=== PATIENT | female | born 1965 | race Caucasian/White ===

== ENCOUNTER 2017-07-20 03:31 | Emergency (ER) | payer SELFPAY ==
[2017-07-20 04:07] VITALS: RESP 16
--- NOTE | 2017-07-20 04:09 | ED PDOC ---
Arrival/HPI - General Chief Complaint: Abdominal Pain Time Seen by Provider: 07/20/17 03:34 Historian: Patient - History of Present Illness Narrative History of Present Illness (Text): 07/20/17 04:03 51 year old female, with past medical history of hypertension, presents to the Emergency Department complaining of abdominal pain, nausea and vomiting since past 36 hours. Patient informs symptoms began after eating a "green vegetable" and worsened in the past 12 hours. Patient states similar symptoms from past episodes. Patient informs visiting physician in [place] for the symptoms in past but did not receive any diagnosis. Patient denies any prior surgery. Patient denies fever, chest pain, shortness of breath, diarrhea or any other complaints. Time/Duration: Other (36 hours ) Symptom Onset: Gradual Symptom Course: Unchanged Activities at Onset: Light Context: Home Past Medical History - Provider Review Nursing Documentation Reviewed: Yes - Reproductive Menopause: Yes - Psychiatric Hx Substance Use: No Family/Social History - Physician Review Nursing Documentation Reviewed: Yes Family/Social History: Unknown Family HX Smoking Status: Never Smoked Hx Alcohol Use: No Hx Substance Use: No Allergies/Home Meds Allergies/Adverse Reactions: Allergies No Known Allergies Allergy (Verified 07/20/17 03:41) Review of Systems - Physician Review All systems were reviewed & negative as marked: Yes - Review of Systems Constitutional: Normal. absent: Fevers Eyes: Normal ENT: Normal Respiratory: Normal. absent: SOB Cardiovascular: Normal. absent: Chest Pain Gastrointestinal: Abdominal Pain, Nausea, Vomiting. absent: Diarrhea Genitourinary Female: Normal Musculoskeletal: Normal Skin: Normal Neurological: Normal Endocrine: Normal Hemo/Lymphatic: Normal Psychiatric: Normal Physical Exam Vital Signs Reviewed: Yes Vital Signs Temp Pulse Resp BP Pulse Ox 07/20/17 05:31 98.5 F 75 16 142/87 100 07/20/17 03:31 98.4 F 87 16 148/86 98 Temperature: Afebrile Blood Pressure: Normal Pulse: Regular Respiratory Rate: Normal Appearance: Positive for: Well-Appearing, Non-Toxic, Comfortable Pain Distress: None Mental Status: Positive for: Alert and Oriented X 3 - Systems Exam Head: Present: Atraumatic, Normocephalic Pupils: Present: PERRL Extroacular Muscles: Present: EOMI Conjunctiva: Present: Normal Mouth: Present: Moist Mucous Membranes Neck: Present: Normal Range of Motion Respiratory/Chest: Present: Clear to Auscultation, Good Air Exchange. No: Respiratory Distress, Accessory Muscle Use Cardiovascular: Present: Regular Rate and Rhythm, Normal S1, S2. No: Murmurs Abdomen: Present: Tenderness (mild diffused epigastric tenderness ), Normal Bowel Sounds. No: Distention, Peritoneal Signs, Rebound, Guarding Back: Present: Normal Inspection Upper Extremity: Present: Normal Inspection. No: Cyanosis, Edema Lower Extremity: Present: Normal Inspection. No: Edema Neurological: Present: GCS=15, CN II-XII Intact, Speech Normal Skin: Present: Warm, Dry, Normal Color. No: Rashes Psychiatric: Present: Alert, Oriented x 3, Normal Insight, Normal Concentration Medical Decision Making ED Course and Treatment: 07/20/17 04:14 Impression: 51 year old female presents to the Emergency Department complaining of abdominal pain, nausea and vomiting. Plan: -- EKG -- Labs -- Pepcid -- IV Fluids -- GI cocktail -- Zofran -- Reassess and disposition Progress Notes: 07/20/17 05:26 Upon reassessment, patient's pain has improved after administration of pepcid but has not been resolved completely. Will provide GI cocktail. Labs are normal 07/20/17 05:53 Patient was administered GI cocktail. Will perform reassessment again. - Lab Interpretations Lab Results: 07/20/17 03:50 07/20/17 03:50 Lab Results 07/20/17 04:35: Urine Color Yellow, Urine Appearance Clear, Urine pH 8.5, Ur Specific [place] 1.015, Urine Protein Negative, Urine Glucose (UA) Negative, Urine Ketones Negative, Urine Blood Negative, Urine Nitrate Negative, Urine Bilirubin Negative, Urine Urobilinogen 0.2, Ur Leukocyte Esterase Trace H, Urine RBC 0 - 2, Urine WBC 1 - 3, Ur Epithelial Cells 1 - 3, Amorphous Sediment Moderate, Urine Bacteria Occ 07/20/17 03:50: WBC 5.9, RBC 4.85, Hgb 13.7, Hct 41.8, MCV 86.2, MCH 28.2, MCHC 32.8, RDW 13.6, Plt Count 298, MPV 10.2, Gran % 76.0 H, Lymph % (Auto) 22.3, [place] % (Auto) 1.2, Eos % (Auto) 0.3 L, Baso % (Auto) 0.2, Gran # 4.46, Lymph # 1.3, [place] # 0.1, Eos # 0.0, Baso # 0.01 07/20/17 03:50: Sodium 142, Potassium 3.8, Chloride 100, Carbon Dioxide 26, Anion Gap 19, BUN 18, Creatinine 0.6 L, Est GFR ( Amer) > 60, Est GFR ( Non-Af Amer) > 60, Random Glucose 132 H, Calcium 10.6 H, Total Bilirubin 0.4, AST 30, ALT 29, Alkaline Phosphatase 62, Total Protein 8.1, Albumin 4.7, Globulin 3.4, Albumin/Globulin Ratio 1.4, Amylase 65, Lipase 75 I have reviewed the lab results: Yes - Medication Orders Current Medication Orders: Sodium Chloride (Sodium Chloride 0.9%) 1,000 mls @ 100 mls/hr IV .Q10H STA Stop: 07/20/17 14:15 Last Admin: 07/20/17 04:42 Dose: 100 mls/hr eMAR Start Stop Document 07/20/17 04:42 YP (Rec: 07/20/17 04:[address] [facility] [id number]) Intravenous Solution Start Date 07/20/17 Start Time 04:42 Discontinued Medications Al Hydrox/Mg Hydrox/Simethicone (Maalox Plus 30 Ml) 30 ml PO STAT STA Stop: 07/20/17 05:28 Last Admin: 07/20/17 05:51 Dose: 30 ml Belladonna/Phenobarbital ( Elixir) 5 ml PO STAT STA Stop: 07/20/17 05:28 Last Admin: 07/20/17 05:50 Dose: 5 ml Famotidine (Pepcid) 20 mg PO STAT STA Stop: 07/20/17 04:21 Last Admin: 07/20/17 04:42 Dose: 20 mg Lidocaine HCl (Lidocaine 2% Viscous) 15 ml MM STAT STA Stop: 07/20/17 05:28 Last Admin: 07/20/17 05:51 Dose: 15 ml Ondansetron HCl (Zofran Inj) 4 mg IM STAT STA Stop: 07/20/17 04:21 Last Admin: 07/20/17 04:42 Dose: 4 mg Comments: adm IVP as per verbal order from Dr. Escobar IM Administration Charges Document 07/20/17 04:42 YP (Rec: 07/20/17 04:[address] [facility] [id number]) Charges for Administration # of IM Administrations 0 - Scribe Statement The provider has reviewed the documentation as recorded by the Scribe Lucia Ortiz. All medical record entries made by the Scribe were at my direction and personally dictated by me. I have reviewed the chart and agree that the record accurately reflects my personal performance of the history, physical exam, medical decision making, and the department course for this patient. I have also personally directed, reviewed, and agree with the discharge instructions and disposition. Disposition/Present on Arrival - Present on Arrival Any Indicators Present on Arrival: No History of DVT/PE: No History of Uncontrolled Diabetes: No Urinary Catheter: No History of Decub. Ulcer: No History Surgical Site Infection Following: None - Disposition Have Diagnosis and Disposition been Completed?: Yes Diagnosis: Gastritis Disposition: HOME/ ROUTINE Disposition Time: 06:18 Patient Plan: Discharge Patient Problems: Current Active Problems Problem Status Onset Gastritis Acute Condition: FAIR Discharge Instructions (ExitCare): Gastritis (ED), Diet for Ulcers and Gastritis (ED) Prescriptions: Pantoprazole Sodium [Protonix] 40 mg PO DAILY #14 ect Referrals: [facility] at [facility] [Outside] - Follow up with primary Forms: [employer] (Pashto)
[2017-07-20] MEDS ORDERED: Sodium Chloride 0.9% 1,000 ML IV STA (04:16)
[2017-07-20 04:52] LABS: ALB/GLOB RATIO 1.4 (1.1-1.8); ALBUMIN 4.7 g/dL (3.0-4.8); ALT/SGPT 29 U/L (7-56); AMYLASE 65 U/L (35-125); AST/SGOT 30 U/L (14-36); BLOOD UREA NITROGEN 18 mg/dL (7-21); CALCIUM 10.6 mg/dL (8.4-10.5); GFR AFRICAN-AMERICAN > 60; GFR NON-AFRICAN AMERICAN > 60; LIPASE 75 U/L (23-300)
[2017-07-20 04:58] LABS: BASO # 0.01 K/mm3 (0.0-2.0); BASO % 0.2 % (0.0-3.0); EOS % 0.3 % (1.5-5.0); GRAN # 4.46 (1.4-6.5); HEMOGLOBIN 13.7 g/dL (12.0-16.0); LYMPH # 1.3 (1.2-3.4); LYMPH % 22.3 % (22.0-35.0); MEAN CELL VOLUME 86.2 fl (80.0-105.0); MEAN CORPUSCULAR HEMOGLOBIN 28.2 pg (25.0-35.0); MEAN CORPUSCULAR HGB CONC 32.8 g/dl (31.0-37.0); MEAN PLATELET VOLUME 10.2 fl (7.0-11.0); MONO # 0.1 (0.1-0.6); MONO % 1.2 % (1.0-6.0); RBC 4.85 10^6/uL (3.5-6.1); RED CELL DISTRIBUTION WIDTH 13.6 % (11.5-14.5); WHITE BLOOD COUNT 5.9 10^3/ul (4.5-11.0)
[2017-07-20] MEDS ORDERED: Alum-Mag Hydrox-Simethicone Susp (30 mL) PO STA (05:27)
[2017-07-20] MEDS ORDERED: Atrop/Hyosc/Scopal/PB Elixir (120 ml) PO STA (05:27)
[2017-07-20 05:28] LABS: PH,URINE 8.5 (4.7-8.0); URINE BILIRUBIN NEGATIVE (NEGATIVE); URINE BLOOD NEGATIVE (NEGATIVE); URINE GLUCOSE (UA) NEGATIVE (NEGATIVE); URINE LEUKOCYTE ESTERASE TRACE Leu/uL (NEGATIVE); URINE NITRATE NEGATIVE (NEGATIVE); URINE PROTEIN NEGATIVE mg/dL (<30 mg/dL); URINE UROBILINOGEN 0.2 E.U./dL (<1 E.U./dL)
[2017-07-20 05:37] LABS: URINE APPEARANCE CLEAR (CLEAR); URINE COLOR YELLOW (YELLOW)
[2017-07-20 05:42] LABS: URINE AMORPHOUS SEDIMENT MODERATE; URINE BACTERIA OCC (NEG); URINE RBC 0 - 2 /hpf (0-2)
[2017-07-20 05:45] VITALS: BP 142/87; PULSE 75; TEMP 98.5; O2SAT 100
--- NOTE | 2017-07-20 10:00 | CARD ---
APPROVED REPORT EKG Measurement Heart [id number] <Conclusion> Normal sinus rhythm Cannot rule out Anterior infarct, age undetermined Abnormal ECG
== END 2017-07-20 06:23 | disposition home or self-care (01) ==
LOC: ED 03:31
DX: K29.70 Gastritis, unspecified, without bleeding (principal)
CPT/HCPCS: 80053; 81001; 82150; 83690; 85025; 87086; 87181; 93005; 99284; J2405; J7040